=== PATIENT | male | born 1940 | race Caucasian/White ===

== ENCOUNTER → 2024-01-19 11:48 | Outpatient (REF) | payer OTHER, SELFPAY | LOC: DHCBC/DCA 11:48 | PROVIDERS: ATTENDING PHYSICIAN Internal Medicine; FAMILY PHYSICIAN Internal Medicine | DX: I48.0 Paroxysmal atrial fibrillation (principal); I47.29 Other ventricular tachycardia; E11.59 Type 2 diabetes mellitus with other circulatory complications | CPT/HCPCS: 78452; 93017; A9500; J2785 ==

== ENCOUNTER 2024-02-24 06:21 | Day surgery (SDC) | payer OTHER, SELFPAY ==
[2024-02-24 12:10] VITALS: BMI 22.2
[2024-02-24 12:15] VITALS: BP 155/82
[2024-02-24 12:28] VITALS: BMI 22.2
[2024-02-24 15:30] VITALS: BP 149/73
[2024-02-24 15:45] VITALS: BP 158/73
[2024-02-24 16:00] VITALS: BP 159/87
== END 2024-02-24 16:30 | disposition home or self-care (01) ==
LOC: GI 06:21
PROVIDERS: ATTENDING PHYSICIAN Internal Medicine Gastroenterology
DX: D12.7 Benign neoplasm of rectosigmoid junction (principal); K57.30 Diverticulosis of large intestine without perforation or abscess without bleeding; D12.8 Benign neoplasm of rectum; K64.0 First degree hemorrhoids; Z79.01 Long term (current) use of anticoagulants
CPT/HCPCS: 45349; 88305

== ENCOUNTER 2024-08-18 06:03 | Inpatient (IN) | payer OTHER, SELFPAY ==
[2024-08-01 08:39] LABS: Hematocrit 37.7 % (39.0-52.0); Mean Corp Hgb Conc. 34.5 g/dL (33.0-37.0); Mean Corpuscular Hgb 34.1 pg (27.0-31.0); Mean Platelet Volume 9.8 fL (7.4-10.4); Platelet Count 164 10^3/uL (130-400); Red Blood Cell Count 3.81 10^6/uL (4.70-6.10); Red Cell Dist. Width 12.7 % (11.5-14.5); White Blood Cell Count 6.5 10^3/uL (4.8-10.8)
[2024-08-01 08:58] LABS: APTT 28.4 Sec (23.4-35.0); INR 1.06; PT 13.6 Sec (11.4-14.6)
[2024-08-01 09:03] LABS: ALT (SGPT) 16 U/L (0-50); AST (SGOT) 23 U/L (17-59); Albumin 4.4 g/dl (3.5-5.0); Alkaline Phosphatase 77 U/L (38-126); Blood Urea Nitrogen 25 mg/dl (9-20); Calcium 9.7 mg/dl (8.4-10.2); Carbon Dioxide 29 mmol/L (22-30); Chloride 103 mmol/L (98-107); Glucose 121 mg/dl (70-99); Potassium 4.9 mmol/L (3.5-5.1); Sodium 142 mmol/L (135-145); Total Bilirubin 0.5 mg/dl (0.2-1.3); Total Protein 6.9 g/dl (6.3-8.2); eGFR 54.85
[2024-08-01 09:23] LABS: Glycohemoglobin (HgbA1c) 6.6 % (4.0-5.6)
[2024-08-01 10:09] VITALS: BMI 23.2
[2024-08-18] VITALS (14 sets, daily range): BP systolic 104–160; BP diastolic 60–80; BMI 23.2
[2024-08-18] MEDS: TYLENOL 1000 MG PO (06:29)
[2024-08-18] MEDS: HEPARIN 5000 UNITS SC (06:30)
[2024-08-18] MEDS: ENTEREG 12 MG PO (06:30)
[2024-08-18] MEDS: NORMOSOL-R/PLASMALYTE-A 1000 IV ×3 (06:34→22:55)
[2024-08-18 06:43] LABS: Glucose - Point of Care 132 mg/dl (70-99)
--- NOTE | 2024-08-18 11:48 | W.IMMPOSTOP ---
Surgical Immed Post Op Note
-
Primary Surgeon: Dayday Alves MD
Assistants: ECHO Zavala & DONNA Ramos
Pre-op Diagnosis: Recurrent sigmoid diverticulitis
Post-op Diagnosis: Same
Procedure Performed: Cystoscopy with bilateral ureteral stents/ICG by Dr. Byers
Robotic sigmoid colectomy with intracorporeal anastomosis
Anesthesia Type: GET
Specimen / Cultures: Sigmoid colon (suture is proximal)
Estimated Blood Loss: 25cc
Complications: None
Operative Findings: Chronic sigmoid diverticulitis
Cystoscopy with bladder tumor in a large diverticulum
28mm EEA
Normal leak test
Right ureteral stent removed at the completion
Patient's updated.
[2024-08-18 12:03] LABS: Glucose - Point of Care 236 mg/dl (70-99)
[2024-08-18] MEDS: NOVOLOG vial 2 UNITS SC (12:54)
[2024-08-18] MEDS: TYLENOL 650 MG PO ×4 (13:57→22:59)
[2024-08-18] MEDS: DILAUDID 0.5 MG IV ×2 (13:57→17:59)
--- NOTE | 2024-08-18 14:15 | PTCARENOTE ---
1342: Patient arrived to 2S. Full head to toe assessment completed. Lap sites closed with surgical glue clean dry and intact. IVF running per order. Patient on RA with SpO2 greater than 92%. Glez draining bloody colored urine. Call ellsworth within
reach and bed in lowest position. Family at bedside.
[2024-08-18] MEDS: NEURONTIN 300 MG PO ×2 (17:20→22:56)
[2024-08-18] MEDS: PROTONIX 40 MG PO (17:20)
[2024-08-18] MEDS: PRAVACHOL 40 MG PO (17:20)
[2024-08-18] MEDS: MIRAPEX 0.125 MG PO (17:21)
[2024-08-19 00:10] LABS: Glucose - Point of Care 157 mg/dl (70-99)
[2024-08-19 03:00] VITALS: BP 163/79
[2024-08-19] MEDS: DILAUDID 0.5 MG IV ×3 (03:28→17:17)
[2024-08-19] MEDS: TYLENOL PO (03:34)
[2024-08-19 03:57] VITALS: BP 146/68
[2024-08-19 06:00] VITALS: BMI 22.4
[2024-08-19 07:25] VITALS: BP 153/72
[2024-08-19 07:38] LABS: % Basophils 0.1 % (0-2); % Immature Granulocytes 0.6 % (0-0.5); % Lymphocytes 8.8 % (20.5-51.1); % Monocytes 6.8 % (1.7-9.3); % Neutrophils 83.7 % (42.2-75.2); Absolute Immature Granulocytes 0.1 10^3/uL (0-0.05); Absolute Lymphocytes 1.1 10^3/uL (1.2-3.4); Absolute Monocytes 0.8 10^3/uL (0.1-0.6); Absolute Neutrophils 10.2 10^3/uL (1.4-6.5); Hematocrit 31.6 % (39.0-52.0); Hemoglobin 11.1 g/dL (13.0-18.0); Mean Corp Hgb Conc. 35.1 g/dL (33.0-37.0); Mean Corpuscular Hgb 34.4 pg (27.0-31.0); Mean Corpuscular Volume 97.8 fL (80.0-94.0); Mean Platelet Volume 9.6 fL (7.4-10.4); Nucleated Red Blood Cells % 0 % (-); Platelet Count 132 10^3/uL (130-400); Red Blood Cell Count 3.23 10^6/uL (4.70-6.10); Red Cell Dist. Width 12.4 % (11.5-14.5); White Blood Cell Count 12.2 10^3/uL (4.8-10.8)
[2024-08-19 08:24] LABS: Blood Urea Nitrogen 19 mg/dl (9-20); Calcium 8.3 mg/dl (8.4-10.2); Carbon Dioxide 28 mmol/L (22-30); Chloride 103 mmol/L (98-107); Estimated Creatinine Clearance 42 ml/min; Glucose 97 mg/dl (70-99); Potassium 4.6 mmol/L (3.5-5.1); Sodium 139 mmol/L (135-145); eGFR > 60.00
[2024-08-19] MEDS: NORMOSOL-R/PLASMALYTE-A 1000 IV ×2 (09:00→17:20)
[2024-08-19] MEDS: TYLENOL 650 MG PO ×4 (09:04→22:14)
[2024-08-19] MEDS: TOPROL XL 25 MG PO (09:05)
[2024-08-19] MEDS: ENTEREG 12 MG PO ×2 (09:05→20:05)
[2024-08-19] MEDS: ZESTRIL 20 MG PO (09:06)
[2024-08-19] MEDS: NEURONTIN 300 MG PO ×3 (09:06→22:14)
[2024-08-19] MEDS: FLOMAX 0.4 MG PO (09:06)
--- NOTE | 2024-08-19 10:12 | CM ---
Reviewed the chart notes and spoke with the patient at the bedside. The patient resides with his spouse in an in-law suite attached to his son's home. There is a ramp to enter. The patient has a hospital bed, rolling walker, rollator, shower
chair, shower rails, and a wheelchair. The patient reports no VN or SNF in the past. The patient confirmed his pharmacy of choice is the [facility]. CM continues to be available to patient/family and is monitoring medical plan for needs
at discharge.
Plan: Discharge plans will depend on the patient's progress.
[2024-08-19 11:15] VITALS: BP 137/67
--- NOTE | 2024-08-19 11:53 | W.PN.CRS1 ---
Today's Communication / Plan
-
dc conrad
clears
hold eliquis
stent removed
Assessment/Plan
-
POD#1 robotic sigmoidectomy
-WBC 12.2 as expected post op. Vitals normal.
-OOB as tolerated
-Stent #2 removed at bedside
-Okay to d/c conrad
-Clear liquids. DC IVFs when tolerating po.
-OR pathology pending
-Needs urology follow up as outpatient for recurrent bladder tumor
-Lovenox start tonight for DVT prophylaxis, TEDS/SCDS in place
-Continue to hold Eliquis
Subjective Data
Procedure
08/18- Cystoscopy with bilateral ureteral stents/ICG by Dr. Byers
Robotic sigmoid colectomy with intracorporeal anastomosis
Subjective Data
Date of Service: August 19, 2024
Patient states he has no pain. He has no nausea or vomiting. He is very thirsty. He has loose stool. He does not have flatus yet.
Objective Data
-
Vital Signs
Temp Pulse Resp BP Pulse Ox
98.2 F 76 16 137/67 97
08/19/24 11:15 08/19/24 11:15 08/19/24 11:15 08/19/24 11:15 08/19/24 11:15
Intake & Output
08/18/24 08/19/24 08/20/24
06:59 06:59 06:59
Intake Total 1800 / 1800 300 / 300
Output Total 750 / 750 350 / 350
Balance 1050 / 1050 -50 / -50
Intake:
IV fluids (Total) 1800 / 1800 300 / 300
Output:
Urine, Conrad 750 / 750 350 / 350
Lab Results
08/19/24 06:42
08/19/24 06:42
Physical Exam
-
General: No Acute Distress and AOx3
Abdomen: Soft, Non Distended and Non Tender
Skin: Warm and Dry
Incision: Clear, Dry, Intact
[2024-08-19 15:20] VITALS: BP 139/72
[2024-08-19] MEDS: LOVENOX 40 MG SC (17:18)
[2024-08-19] MEDS: MIRAPEX 0.125 MG PO (17:19)
[2024-08-19] MEDS: PROTONIX 40 MG PO (17:19)
[2024-08-19] MEDS: DILAUDID 0.25 MG IV (22:14)
[2024-08-19 23:00] VITALS: BP 150/74
[2024-08-20] MEDS: TYLENOL PO (00:56)
[2024-08-20] MEDS: DILAUDID 0.5 MG IV (03:35)
[2024-08-20] MEDS: TYLENOL 650 MG PO ×5 (03:35→21:56)
[2024-08-20] MEDS: ZOFRAN 4 MG IV (03:40)
[2024-08-20 06:00] VITALS: BMI 22.8
--- NOTE | 2024-08-20 06:39 | PTCARENOTE ---
Pt required 2l N/C O2 @ HS last night for O2 sats 88 on RA able to maintain 93 on 2L during shift.
[2024-08-20 07:15] VITALS: BP 144/84
[2024-08-20 07:41] LABS: % Basophils 0.1 % (0-2); % Eosinophils 0.1 % (0-6); % Immature Granulocytes 0.5 % (0-0.5); % Lymphocytes 7.7 % (20.5-51.1); % Neutrophils 87.6 % (42.2-75.2); Absolute Immature Granulocytes 0.1 10^3/uL (0-0.05); Absolute Lymphocytes 0.8 10^3/uL (1.2-3.4); Absolute Monocytes 0.4 10^3/uL (0.1-0.6); Absolute Neutrophils 8.7 10^3/uL (1.4-6.5); Hematocrit 33.3 % (39.0-52.0); Hemoglobin 11.8 g/dL (13.0-18.0); Mean Corp Hgb Conc. 35.4 g/dL (33.0-37.0); Mean Corpuscular Hgb 35.2 pg (27.0-31.0); Mean Corpuscular Volume 99.4 fL (80.0-94.0); Mean Platelet Volume 9.9 fL (7.4-10.4); Nucleated Red Blood Cells % 0 % (-); Platelet Count 113 10^3/uL (130-400); Red Blood Cell Count 3.35 10^6/uL (4.70-6.10); Red Cell Dist. Width 12.3 % (11.5-14.5)
[2024-08-20 08:12] LABS: Blood Urea Nitrogen 18 mg/dl (9-20); Calcium 8.5 mg/dl (8.4-10.2); Carbon Dioxide 31 mmol/L (22-30); Chloride 102 mmol/L (98-107); Estimated Creatinine Clearance 38 ml/min; Glucose 127 mg/dl (70-99); Potassium 4.7 mmol/L (3.5-5.1); Sodium 139 mmol/L (135-145); eGFR > 60.00
[2024-08-20] MEDS: NEURONTIN 300 MG PO ×3 (08:38→21:57)
[2024-08-20] MEDS: FLOMAX 0.4 MG PO (08:38)
[2024-08-20] MEDS: ENTEREG 12 MG PO ×2 (08:39→21:56)
[2024-08-20] MEDS: TOPROL XL 25 MG PO (08:39)
[2024-08-20] MEDS: ZESTRIL 20 MG PO (08:39)
[2024-08-20] MEDS: DILAUDID 0.25 MG IV (08:50)
--- NOTE | 2024-08-20 11:46 | W.PN.CRS1 ---
Today's Communication / Plan
-
restart eliquis
fulls
Assessment/Plan
-
POD#2 robotic sigmoidectomy
-WBC 10.0 as expected post op. Vitals normal.
-OOB as tolerated
-Full liquids.
-OR pathology pending
-Needs urology follow up as outpatient for recurrent bladder tumor
-TEDS/SCDS in place
-Restart Eliquis
Subjective Data
Procedure
08/18- Cystoscopy with bilateral ureteral stents/ICG by Dr. Byers
Robotic sigmoid colectomy with intracorporeal anastomosis
Subjective Data
Date of Service: August 20, 2024
Patient states he is hungry. He had some nausea last night which has resolved. He has flatus. His urine is bloody.
Objective Data
-
Vital Signs
Temp Pulse Resp BP Pulse Ox
98.6 F 84 16 144/84 96
08/20/24 07:15 08/20/24 07:15 08/20/24 07:15 08/20/24 07:15 08/20/24 09:01
Intake & Output
08/19/24 08/20/24 08/21/24
06:59 06:59 06:59
Intake Total 1800 / 1800 3340 / 3340 240 / 240
Output Total 750 / 750 1450 / 1450 375 / 375
Balance 1050 / 1050 1890 / 1890 -135 / -135
Intake:
Oral fluids 1140 / 1140 240 / 240
IV fluids (Total) 1800 / 1800 2200 / 2200
Output:
Urine, Glez 750 / 750 650 / 650
Urine, Voided 800 / 800 375 / 375
Other:
Number of approximated MODERATE 2
amounts of urine
Lab Results
08/20/24 05:49
08/20/24 05:49
Physical Exam
-
General: No Acute Distress and AOx3
Abdomen: Soft, Non Distended and Non Tender
Skin: Warm and Dry
Incision: Clear, Dry, Intact
[2024-08-20 15:20] VITALS: BP 115/75
[2024-08-20] MEDS: MIRAPEX 0.125 MG PO (16:10)
[2024-08-20] MEDS: PROTONIX 40 MG PO (16:11)
[2024-08-20] MEDS: PRAVACHOL 40 MG PO (16:11)
--- NOTE | 2024-08-20 19:45 | PTCARENOTE ---
urine is bloody/brown did discuss with PA since stents were pulled yesterday they are okay with this.
[2024-08-20] MEDS: ELIQUIS 2.5 MG PO (21:57)
[2024-08-20 23:17] VITALS: BP 105/58
[2024-08-21] MEDS: TYLENOL PO ×2 (00:31→03:27)
[2024-08-21 05:31] VITALS: BMI 22.5
[2024-08-21 08:00] VITALS: BP 142/74
[2024-08-21] MEDS: NEURONTIN 300 MG PO (08:26)
[2024-08-21] MEDS: ZESTRIL 20 MG PO (08:26)
[2024-08-21] MEDS: ENTEREG 12 MG PO (08:26)
[2024-08-21] MEDS: TYLENOL 650 MG PO ×2 (08:26→11:21)
[2024-08-21] MEDS: ELIQUIS 2.5 MG PO (08:26)
[2024-08-21] MEDS: FLOMAX 0.4 MG PO (08:26)
[2024-08-21] MEDS: TOPROL XL 25 MG PO (08:27)
--- NOTE | 2024-08-21 09:22 | W.PN.CRS1 ---
Today's Communication / Plan
-
low residue
urology input
Assessment/Plan
-
POD#3 robotic sigmoidectomy
-Vitals normal.
-OOB as tolerated
-Advance to low residue.
-OR pathology pending
-Needs urology follow up as outpatient for recurrent bladder tumor - I have reached out to them regarding continuing blood in the urine
-TEDS/SCDS in place
-On Eliquis 2.5mg BID
-Possible d/c later today
Subjective Data
Procedure
08/18- Cystoscopy with bilateral ureteral stents/ICG by Dr. Byers
Robotic sigmoid colectomy with intracorporeal anastomosis
Subjective Data
Date of Service: August 21, 2024
Patient states he had some loose stools. He has flatus. He doesn't have abdominal pain, but rather, 'feels tight'. He continues to have blood in his urine.
Objective Data
-
Vital Signs
Temp Pulse Resp BP Pulse Ox
98.4 F 79 16 142/74 94
08/21/24 08:00 08/21/24 08:00 08/21/24 08:00 08/21/24 08:00 08/21/24 08:00
Intake & Output
08/20/24 08/21/24 08/22/24
06:59 06:59 06:59
Intake Total 3340 / 3340 1919
Output Total 1450 / 1450 375 / 375
Balance 1890 / 1890 1545 / 1545
Intake:
Oral fluids 1140 / 1140 1919 / 1919
IV fluids (Total) 2199 / 2199
Output:
Urine, Glez 650 / 650
Urine, Voided 800 / 800 375 / 375
Other:
Number of approximated MODERATE 2 3
amounts of urine
Number of approximated LARGE 4
amounts of urine
Lab Results
08/20/24 05:49
08/20/24 05:49
Physical Exam
-
General: No Acute Distress and AOx3
Abdomen: Soft, Non Distended and Non Tender
Skin: Warm and Dry
Incision: Clear, Dry, Intact
[2024-08-21 13:35] VITALS: BP 129/71
--- NOTE | 2024-08-21 13:52 | W.DCSUMMARY ---
Discharge Summary
Discharge Data
Date of Admission: 08/18/24
Date of Discharge: 08/21/24
-
Pending Results: Yes
Additional Pending Results:
OR pathology
Hospital Course
84-year-old male presented for a robotic sigmoid colectomy due to recurrent sigmoid diverticulitis. This was performed on 08/18/[address] Dayday Alves. The patient had ureteral catheters placed prior to the start of surgery for visualization
of the ureters. 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 Postoperatively the patient went back [place] [facility] [place]. His Glez was discontinued and the stent that was left
in place in the operating room was removed he was started on clear liquid diet he was up and out of bed. His diet was slowly advanced to a low residue diet throughout his stay. His home Eliquis was restarted on postop day 2. The patient did have
some bloody urine post Glez removal. This was reviewed by Dr. Byers who recommended he follow-up with Dr. Richardson as an outpatient for a possible TURP. On postop day 3 it was determined the patient to be discharged to home. I discussed the
case with case management who stated the patient did not want home health services. All discharge instructions were discussed with the patient including medication tibials and follow-up. All questions were answered. OR pathology was pending at
the time of discharge.
Discharge Plan
-
Patient Disposition: Home (Routine Discharge)
Discharge Diagnosis/Procedures: Cystoscopy with bilateral ureteral stents/ICG by Dr. Byers
Robotic sigmoid colectomy with intracorporeal anastomosis
Diet: Low Residue
Activity: No strenuous activity
Additional Activity: No lifting over 10lbs (gallon of milk).
Driving Restrictions: No driving for 1 week
Bathing Restrictions: OK to Shower
Wound Care: Allow glue to naturally fall off. Do not pick at incisions.
Activity Restrictions/Additional Instructions:
Please follow up with Dr. Richardson in the office this week to plan for a TURBT.
Instructions: Low Fiber Diet
Referrals:
Stefan Alves MD [Active] - in two weeks
Rajan Jhaveri MD [Family Provider] -
Wilmer Richardson MD [Active] - in three to four days
Additional Discharge Medication Instructions: Tylenol as needed for pain. Maximum amount of Tylenol is 4,000mg in 24 hours.
Prescriptions:
Continued
multivitamin Tablet
1 tab PO QPM
pravastatin 40 mg Tablet
40 mg PO Q48H@1800
pramipexole 0.125 mg Tablet
0.125 mg PO QPM
omeprazole 20 mg Capsule,Delayed Release(Dr/Ec)
20 mg PO QPM
ascorbic acid (vitamin C) 1,000 mg Tablet
1 g PO QPM
tamsulosin 0.4 mg Capsule
0.4 mg PO DAILY Qty: 30 0RF
lisinopril 20 mg tablet
20 mg PO DAILY Qty: 30 0RF
metoprolol succinate 25 mg Tablet Extended Release 24 Hr
25 mg PO DAILY
gabapentin 300 mg Tablet
600 mg PO HS
Eliquis 2.5 mg Tablet
2.5 mg PO BID
gabapentin 300 mg capsule
300 mg PO QID
Tylenol
650 mg PO Q8H PRN (Reason: pain)
Discontinued
Sutab 1.479-0.188- 0.225 gram Tablet
PO DIRECTED
Discharge Orders:
Discharge Patient (As Directed); Ordered 08/21/24
Ordered By: Jaylyn Bowles
Discharge Date and Time
Print Language: MACANESE
--- NOTE | 2024-08-21 14:20 | CM ---
Pt for discharge today
Will have ride home with family member
Discussed HH - pt declined
Discussed IMM
Plan - anticipate home no needs
--- NOTE | 2024-08-22 10:59 | PN.CDI ---
CDI
- -
CDI:
Physician Documentation Request
Admit Date: 08/18/24 06:03
Dear Doctor Zeeshan,
Patient had placement of bilateral ureteral stents on 08/18.
Progress notes indicate pt has known evidence of recurrent bladder tumor.
08/20 Eliquis was restarted
08/20 nursing notes indicated 'urine is bloody/brown' as well as surgery progress notes noting 'His urine is bloody'
Discharge summary 'The patient did have some bloody urine post Conrad removal.'
Based on the above, what is the most likely etiology of the bloody urine:
Bloody urine is related to ureteral stents
Bloody urine is related to/due to bladder tumor
Bloody urine is related to/due to conrad cath
Bloody urine is related to/due to/exacerbated by Eliquis
Bloody urine is related to/due to multifactorial (please list contributing factors)
Other
Use of terms such as suspected, likely, concern for, or probable (associated with a specific diagnosis that is being evaluated, monitored, or treated as if it exists) are acceptable and can be coded in the inpatient setting, when documented at the
time of discharge.
Thank you,
India Jackson RN, BSN
CDI Specialist
tiger text
Please use your independent medical judgment in providing your response.
--- NOTE | 2024-08-23 14:41 | W.PN.URO.CBU ---
Today's Communication / Plan
-
no new input
Assessment / Plan
-
Bloody urine is multifactorial: related to ureteral stents; related to bladder tumor; related to conrad catheter; exacerbated by Eliquis
Diagnosis
-
Date of Service: August 23, 2024
-
Patient Diagnosis: Bladder Cancer, Hematuria, s/p bilateral open-ended ureteral catheter and Conrad placement for OR
Objective
-
Vital Signs
Temp Pulse Resp BP Pulse Ox
99.4 F 100 16 129/71 94
08/21/24 13:35 08/21/24 13:35 08/21/24 13:35 08/21/24 13:35 08/21/24 13:35
Laboratory Results
08/20/24 05:49
08/20/24 05:49
Physical Exam
-
General - well developed, well nourished, no acute distress
Chest - clear bilaterally
Abdomen - soft, non-tender, positive bowel sounds, no CVAT, no incisional pain or distention
Genitalia - normal
Rectal - normal
Skin - warm & dry with no rash
Neuro - AOx3, no motor deficits
Extremities - no clubbing, no cyanosis, no edema
Incision - clean, dry
Dressing - clean, dry, intact
== END 2024-08-21 14:54 | disposition home or self-care (01) | DRG 330 ==
LOC: 2 SOUTH 06:03
PROVIDERS: Physician Assistant; Specialist; ADMITTING PHYSICIAN Surgery; FAMILY PHYSICIAN Internal Medicine
PROC: 0TP9XDZ Removal of Intraluminal Device from Ureter, External Approach (ICD-10-PCS; 2024-08-18)
PROC: 8E0W4CZ Robotic Assisted Procedure of Trunk Region, Percutaneous Endoscopic Approach (ICD-10-PCS; 2024-08-18)
PROC: 0T788DZ Dilation of Bilateral Ureters with Intraluminal Device, Via Natural or Artificial Opening Endoscopic (ICD-10-PCS; 2024-08-18)
PROC: 0DTN4ZZ Resection of Sigmoid Colon, Percutaneous Endoscopic Approach (ICD-10-PCS; 2024-08-18)
DX: K57.32 Diverticulitis of large intestine without perforation or abscess without bleeding (principal); D68.32 Hemorrhagic disorder due to extrinsic circulating anticoagulants; N99.820 Postprocedural hemorrhage of a genitourinary system organ or structure following a genitourinary system procedure; T83.83XA Hemorrhage due to genitourinary prosthetic devices, implants and grafts, initial encounter; C67.4 Malignant neoplasm of posterior wall of bladder; N32.3 Diverticulum of bladder; K40.90 Unilateral inguinal hernia, without obstruction or gangrene, not specified as recurrent; I48.0 Paroxysmal atrial fibrillation; E78.5 Hyperlipidemia, unspecified; F17.290 Nicotine dependence, other tobacco product, uncomplicated; T45.515A Adverse effect of anticoagulants, initial encounter; R31.9 Hematuria, unspecified; Y73.2 Prosthetic and other implants, materials and accessory gastroenterology and urology devices associated with adverse incidents; Z79.01 Long term (current) use of anticoagulants; Z79.899 Other long term (current) drug therapy; Z87.19 Personal history of other diseases of the digestive system; Z86.010 Personal history of colon polyps; Z82.49 Family history of ischemic heart disease and other diseases of the circulatory system
CPT/HCPCS: 88307; 36415; 80048; 80053; 82962; 83036; 85025; 85027; 85610; 85730; 86850; 86900; 86901; 93005; 97162; 99406; A4300; J1335

== ENCOUNTER 2024-09-12 00:43 | Observation (INO) | payer OTHER, SELFPAY ==
[2024-09-11 16:29] VITALS: BP 154/73
--- NOTE | 2024-09-11 16:29 | ED.GENMED ---
ED Provider Triage
<Sydnee Rubio NP - Last Filed: 09/11/24 16:36>
-
Patient seen by provider in Triage?: Seen in Triage
Attestation: A medical screening examination has been initiated by a qualified medical provider. Based on the assessment performed at this time, it has been determined that an emergent medical condition may exist and the patient has been informed
that further medical evaluation and possible additional diagnostic testing may be needed.
HPI: 84-year-old with history of afib on Eliquis, bladder cancer, Dr. Richardson, receiving BCG treatments, was supposed to have a treatment today but couldn't make it. States he is here for abdominal pain that has been worsening since his previous
surgery.
Had colon resection for diverticulitis approximately 3 weeks ago
Has had mild nausea, no vomiting. He constantly feels like he has to have a bowel movement but can only go small amounts, nonbloody, off and on for the past couple days. His appetite has been poor. Denies trouble urinating
GENERAL: Alert , in no apparent distress
EYE: No visual abnormalities.
ENT: No visible abnormalities.
CARDIAC: RRR, no murmur
LUNGS: No acute respiratory distress
NEUROLOGICAL: Alert and oriented
SKIN: Skin intact. No visible changes.
MUSCULOSKELETAL: Moving extremities normally
PSYCH: Normal and appropriate interaction.
This is a medical evaluation conducted in person to initiate diagnostic evaluation and provide initial therapeutics. Please see further documentation by the treating clinician.
History of Present Illness
<Sydnee Rubio GARAGE DOOR SERVICE TECHNICIAN - Last Filed: 09/11/24 16:36>
General
Chief Complaint: Abdominal Pain
Time Seen by Provider: 09/11/24 20:42
<Etienne Bazan Jr., PA-C - Last Filed: 09/11/24 23:48>
General
Source: patient, spouse and family
Exam Limitations: none
History of Present Illness
History of Present Illness:
84-year-old male with past medical history of A-fib currently on Eliquis, hypertension hyperlipidemia, diabetes presenting to the emergency department today for concerns of ongoing left lower quadrant abdominal pain over the past 3 weeks. Claims to
be diverticulitis and had sigmoidectomy 3 weeks ago has had ongoing pain and decreased appetite since. Denies any chest pain shortness of breath changes in urination.
Past History
<Sydnee Rubio GARAGE DOOR SERVICE TECHNICIAN - Last Filed: 09/11/24 16:36>
Past History
ED Past Medical History: Arrthythmia (atrial fib), Cancer (Bladder ), GERD, HTN, Hypercholesterolemia, NIDDM and Other (Emphysema, Diverticulitis, UTI, Sepsis)
ED Past Surgical History: Tonsilectomy and Urological (TURP)
Patient has exhibited threatening behavior?: No
PSI?: No
Social History
Tobacco: Smoker (Cigars)
Alcohol: None
Personal:
Living: with family
Review of Systems
<Etienne Bazan Jr., PA-C - Last Filed: 09/11/24 23:48>
Review of Systems
Allergies reviewed?: Yes
All Other Systems: ROS reviewed and negative except as documented in HPI and ROS
Phy Exam
<Etienne Bazan Jr., PA-C - Last Filed: 09/11/24 23:48>
Physical Exam
Physical Exam:
GENERAL: Alert , in no apparent distress
EYE: pupils equal and reactive
NECK: Supple, no significant adenopathy.
ENT: o/p clr, mmm.
CARDIAC: Regular rate and rhythm .
LUNGS: Clear breath sounds bilaterally, no acute respiratory distress, no wheezes/rales/rhonchi
ABDOMEN: Left lower quadrant abdominal pain without overlying skin changes soft abdomen otherwise to the remainder of the abdomen
NEUROLOGICAL: Alert and oriented, no focal neuro deficits
SKIN: Warm and dry, skin intact.
MUSCULOSKELETAL: No edema, well perfused.
PSYCH: Normal and appropriate interaction.
Course
<Sydnee Rubio, GARAGE DOOR SERVICE TECHNICIAN - Last Filed: 09/11/24 16:36>
Orders/Labs/Results
Orders:
Orders
09/11/24 16:34
CT Abd/pel W Iv And Oral Contr Urgent
Comment:
Reason For Exam: abd pain, recent colon resect for diverticulitis
Iohexol [Omnipaque] See Protocol PO NOW STA
09/11/24 16:35
Complete Blood Count/With Diff Urgent
Comprehensive Metabolic Panel Urgent
Lipase Urgent
09/11/24 22:42
Urinalysis Reflex To Culture Urgent
Date Specimen was Collected: 09/11/24
Time Specimen was Collected: 16:33
Abnormal Lab Results
09/11/24 09/11/24
16:35 22:42
RBC 3.58 L 10^6/uL
(4.70-6.10)
Hgb 12.4 L g/dL
(13.0-18.0)
Hct 34.7 L %
(39.0-52.0)
MCV 96.9 H fL
(80.0-94.0)
MCH 34.6 H pg
(27.0-31.0)
Eosinophils % 6.9 H %
(0-6)
Glucose 103 H mg/dl
(70-99)
Urine Ketones Trace A
(Negative)
09/11/24 16:35
09/11/24 16:35
Vital Signs
Initial and Last Documented VS:
Initial Vital Signs
Temp Pulse Resp BP Pulse Ox
98.1 F 74 16 154/73 97
09/11/24 16:29 09/11/24 16:29 09/11/24 16:29 09/11/24 16:29 09/11/24 16:29
Last Documented Vital Signs
Temp Pulse Resp BP Pulse Ox
98.1 F 67 16 125/77 98
09/11/24 16:29 09/11/24 20:50 09/11/24 20:50 09/11/24 22:41 09/11/24 20:50
<Etienne Bazan Jr., PA-Estrada - Last Filed: 09/11/24 23:48>
Orders/Labs/Results
Orders:
Orders
09/11/24 16:34
CT Abd/pel W Iv And Oral Contr Urgent
Comment:
Reason For Exam: abd pain, recent colon resect for diverticulitis
Iohexol [Omnipaque] See Protocol PO NOW STA
09/11/24 16:35
Complete Blood Count/With Diff Urgent
Comprehensive Metabolic Panel Urgent
Lipase Urgent
09/11/24 22:42
Urinalysis Reflex To Culture Urgent
Date Specimen was Collected: 09/11/24
Time Specimen was Collected: 16:33
Abnormal Lab Results
09/11/24 09/11/24
16:35 22:42
RBC 3.58 L 10^6/uL
(4.70-6.10)
Hgb 12.4 L g/dL
(13.0-18.0)
Hct 34.7 L %
(39.0-52.0)
MCV 96.9 H fL
(80.0-94.0)
MCH 34.6 H pg
(27.0-31.0)
Eosinophils % 6.9 H %
(0-6)
Glucose 103 H mg/dl
(70-99)
Urine Ketones Trace A
(Negative)
09/11/24 16:35
09/11/24 16:35
Vital Signs
Initial and Last Documented VS:
Initial Vital Signs
Temp Pulse Resp BP Pulse Ox
98.1 F 74 16 154/73 97
09/11/24 16:29 09/11/24 16:29 09/11/24 16:29 09/11/24 16:29 09/11/24 16:29
Last Documented Vital Signs
Temp Pulse Resp BP Pulse Ox
98.1 F 67 16 125/77 98
09/11/24 16:29 09/11/24 20:50 09/11/24 20:50 09/11/24 22:41 09/11/24 20:50
<Etienne Bazan Jr., PA-C - Last Filed: 09/11/24 23:48>
MDM/Problems Addressed
MDM/Problems Addressed:
84-year-old male presenting to the emergency department today with concerns of ongoing left lower quadrant abdominal pain. Recent sigmoidectomy [address] Alves. Here vital signs are normal. Patient in no distress labs obtained without
acute abnormalities normal white count normal urinalysis. CT scan showed a 2.8 x 0.8 cm fluid collection in the left lower quadrant of unclear etiology. Case was discussed with colorectal the recommended admitting to be assessed in the morning for
further recommendation. Stable here.
<Etienne Bazan Jr., PA-C - Last Filed: 09/11/24 23:48>
*Critical Care Note
Total Time (30-74mins, 75-104mins- exclusive of procedures): Not Applicable
ED Attending Note
<Sydnee Rubio GARAGE DOOR SERVICE TECHNICIAN - Last Filed: 09/11/24 16:36>
-
Portions of this chart may have been created with voice recognition software.� Occasional wrong word or��sound alike� substitutions may have occurred due to the inherent limitations of voice recognition software.
Discharge Plan
Departure
Patient Disposition: Admit
Date of Disposition: 09/11/24
Time of Disposition: 23:47
Admit to: Med/Surg
Admit to doctor: Vick
Presentation/result/management discussed w/ accepting MD/DO: Hospitalist
Patient with high blood pressure during this ER visit?: No
Condition: Good
Covid-19: Not Applicable
Discharge Problem:
Abdominal pain, left lower quadrant, Abdominal fluid collection
Prescriptions:
No Action
multivitamin Tablet
1 tab PO QPM
pravastatin 40 mg Tablet
40 mg PO Q48H@1800
pramipexole 0.125 mg Tablet
0.125 mg PO QPM
omeprazole 20 mg Capsule,Delayed Release(Dr/Ec)
20 mg PO QPM
ascorbic acid (vitamin C) 1,000 mg Tablet
1 g PO QPM
tamsulosin 0.4 mg Capsule
0.4 mg PO DAILY Qty: 30 0RF
lisinopril 20 mg tablet
20 mg PO DAILY Qty: 30 0RF
metoprolol succinate 25 mg Tablet Extended Release 24 Hr
25 mg PO DAILY
gabapentin 300 mg Tablet
600 mg PO HS
Eliquis 2.5 mg Tablet
2.5 mg PO BID
gabapentin 300 mg capsule
300 mg PO TID
Tylenol
650 mg PO Q8H PRN (Reason: pain)
Referrals:
Rajan Jhaveri MD [Family Provider] -
Interventions
Interventions:
*Risk Screen - Suicide Last Done: 09/11/24 16:29
*General Assessment Last Done: 09/11/24 20:50
*Neglect/Abuse Screening Last Done: 09/11/24 16:29
ED- Fall Risk Assessment Last Done: 09/11/24 20:50
*ED COVID-19 Vaccine History Last Done: 09/11/24 20:50
JX-Kezhbs-Igsjsevsrg Assessment Last Done: 09/11/24 20:50
Discharge Date and Time
Print Language: KOREAN
[2024-09-11] MEDS: OMNIPAQUE 50 ML PO (16:47)
[2024-09-11 16:53] LABS: % Basophils 0.5 % (0-2); % Eosinophils 6.9 % (0-6); % Immature Granulocytes 0.2 % (0-0.5); % Lymphocytes 27.3 % (20.5-51.1); % Monocytes 8.9 % (1.7-9.3); % Neutrophils 56.2 % (42.2-75.2); Absolute Eosinophils 0.4 10^3/uL (0-0.7); Absolute Lymphocytes 1.6 10^3/uL (1.2-3.4); Absolute Monocytes 0.5 10^3/uL (0.1-0.6); Absolute Neutrophils 3.3 10^3/uL (1.4-6.5); Hematocrit 34.7 % (39.0-52.0); Hemoglobin 12.4 g/dL (13.0-18.0); Mean Corp Hgb Conc. 35.7 g/dL (33.0-37.0); Mean Corpuscular Hgb 34.6 pg (27.0-31.0); Mean Corpuscular Volume 96.9 fL (80.0-94.0); Mean Platelet Volume 9.3 fL (7.4-10.4); Nucleated Red Blood Cells % 0 % (-); Platelet Count 168 10^3/uL (130-400); Red Blood Cell Count 3.58 10^6/uL (4.70-6.10); Red Cell Dist. Width 12.5 % (11.5-14.5); White Blood Cell Count 5.9 10^3/uL (4.8-10.8)
[2024-09-11 17:26] LABS: ALT (SGPT) 14 U/L (0-50); AST (SGOT) 23 U/L (17-59); Albumin 4.3 g/dl (3.5-5.0); Alkaline Phosphatase 70 U/L (38-126); Blood Urea Nitrogen 14 mg/dl (9-20); Calcium 9.6 mg/dl (8.4-10.2); Carbon Dioxide 26 mmol/L (22-30); Chloride 103 mmol/L (98-107); Glucose 103 mg/dl (70-99); Sodium 140 mmol/L (135-145); Total Bilirubin 0.6 mg/dl (0.2-1.3); Total Protein 6.9 g/dl (6.3-8.2); eGFR > 60.00
[2024-09-11 18:17] VITALS: BP 120/86
[2024-09-11 18:26] LABS: Lipase 43 U/L (23-300)
[2024-09-11 20:50] VITALS: BP 163/80; BMI 22.1
[2024-09-11 22:41] VITALS: BP 125/77
--- NOTE | 2024-09-11 22:58 | EDRN ---
Updated patient and family to let know the patient will be admitted over night and then the specialist will see him in the morning, call ellsworth in reach, no further complaints at this time.
[2024-09-11 23:00] VITALS: BP 141/94
[2024-09-11 23:04] LABS: Urine Albumin Trace (Neg - Trace); Urine Bilirubin Negative (Negative); Urine Character Clear (Clear); Urine Color Yellow; Urine Glucose Negative (Negative); Urine Ketone Trace (Negative); Urine Leukocyte Negative (Negative); Urine Nitrite Negative (Negative); Urine Occult Blood Negative (Negative); Urine Specific Gravity 1.005 (<1.030); Urine Urobilinogen Negative (Neg - 1+)
[2024-09-12] VITALS (20 sets, daily range): BP systolic 114–170; BP diastolic 55–91; BMI 21.2
--- NOTE | 2024-09-12 00:14 | EDRN ---
Dr. Hickman at bedside working on admission
[2024-09-12] MEDS: NEURONTIN 600 MG PO ×2 (00:28→20:28)
--- NOTE | 2024-09-12 00:35 | HPS.HSE ---
Family Physician
-
Family Physician: Rajan Jhaveri
Chief Complaint
-
Abd Pain
History of Present Illness
Patient is an 84y M with PMH significant for bladder cancer, hypertension and recent sigmoidectomy for recurrent diverticulitis who presents to ED complaining of abdominal pain. Patient reports L sided abdominal pain that radiates from the LUQ
region to the L groin. Pain started Wednesday evening after dinner (pot roast and potatoes). Patient had been doing well prior to that on diet of oatmeal, sherbet and other soft / liquid foods. He denies any fevers / chills. No diarrhea, urinary
complaints, etc. No N/V.
Patient states that his current discomfort is identical to the pain that he has been having intermittently for the past year.
pain tends to occur after eating - especially with certain foods.
He also notes that pain is worse with standing / being active and is better with rest / lying flat.
Medical History
Past Medical History
Past Medical History: Reports Other
Additional Past Medical History:
Hypertension
Paroxysmal Atrial Fibrillation
DM-II
Bladder Cancer
Diverticular Disease
Past Surgical History: Reports Other
Additional Past Surgical History:
T&A
TURBT
Robotic Sigmoidectomy (08/18/24)
Social History
Tobacco: Former Smoker (Quit smoking cigarettes 20 years ago. > 40 pack years total use. Still smokes the occasional cigar.)
Alcohol: Former (No alcohol in decades.)
Drug: None
Family History
Family History: CAD, Diabetes and Hypertension
Allergies / Home Medications
Allergies reflects when Allergies were last updated in [facility].
Home Medications with original date entered in [facility]
Allergy/Medication List:
Allergies
Allergy/AdvReac Type Severity Reaction Status Date / Time
No Known Allergies Allergy Verified 09/11/24 16:32
Home Medications
multivitamin 1 tab PO QPM Supplement 01/04/23
omeprazole 20 mg capsule,delayed release 20 mg PO QPM Gastrointestinal Issue 01/04/23
pramipexole 0.125 mg tablet 0.125 mg PO QPM Neurological Condition 01/04/23
pravastatin 40 mg tablet 40 mg PO Q48H@1800 High Cholesterol 01/04/23
ascorbic acid (vitamin C) 1,000 mg tablet 1 g PO QPM Supplement 04/30/23
lisinopril 20 mg tablet 20 mg PO DAILY #30 tabs 05/04/23
tamsulosin 0.4 mg capsule 0.4 mg PO DAILY #30 caps 05/04/23
apixaban 2.5 mg tablet (Eliquis) 2.5 mg PO BID ATRIAL FIBRILLATION 10/15/23
gabapentin 300 mg capsule 300 mg PO TID NEUROPATHY 10/15/23
gabapentin 300 mg tablet 600 mg PO HS NEUROPATHY 10/15/23
metoprolol succinate 25 mg tablet,extended release 24 hr 25 mg PO DAILY Blood Pressure 10/15/23
Tylenol 650 mg PO Q8H PRN pain 02/24/24
Review of Systems
-
History Source: Patient
A 12 point ROS was completed and negative except as noted: Yes
Constitutional: Denies Fever or Chills
EENT: Denies Sore Throat
Respiratory: Denies Cough or Trouble Breathing
Cardiac: Denies Chest Pain or Palpitations
Abdomen/GI: Reports Abdominal Pain; Denies Nausea, Vomiting, Diarrhea, Constipated, Bloody Stools or Black Stools
: Denies Dysuria, Frequency, Flank Pain or Bleeding
Neurological: Denies Dizzy or Headache
Physical Exam
Vital Signs
Vital Signs
Temp Pulse Resp BP Pulse Ox
98.1 F 67 16 164/69 98
09/11/24 16:29 09/11/24 20:50 09/11/24 20:50 09/12/24 00:00 09/11/24 20:50
Physical Exam
General: Other (84y M in no acute distress.)
HEENT: Moist mucous membranes and PERRLA
Respiratory: Other (Few scattered squeaks and wheezes.)
Cardiac: S1/S2 and Irregular Rhythm; No Murmur
GI: Soft, Non Distended, Normal Bowel Sounds and Other (Suprapubic incision well-appearing. Visible / mildly tender L inguinal hernia. Tenderness LUQ with radiation to the L groin. Abdomen is soft. No rebound / guarding.)
Musculoskeletal: No Clubbing, No Cyanosis and No Edema
Neuro: AO x 3
Laboratory Results
-
09/11/24 16:35
09/11/24 16:35
Laboratory Results
Total Bilirubin 0.6 mg/dl (0.2-1.3) 09/11/24 16:35
AST 23 U/L (17-59) 09/11/24 16:35
ALT 14 U/L (0-50) 09/11/24 16:35
Alkaline Phosphatase 70 U/L (38-126) 09/11/24 16:35
Lipase 43 U/L (23-300) 09/11/24 16:35
Lipase Cancelled 09/11/24 16:35
Impression/Plan
-
A/P: Patient is an 84y M with PMH significant for bladder cancer, hypertension and recent sigmoid resection who presents to ED complaining of abdominal pain.
Abdominal Pain
s/p Robotic Sigmoid Resection 08/18/24
- Observe overnight for further evaluation and treatment.
- Patient states that pain is identical to his prior episodes - which had been attributed to diverticulitis.
- CT done today shows normal post-op changes - including fluid accumulation in the LLQ - most likley representing seroma.
- Afebrile, not toxic appearing, etc.
- ? etiology of his pain.
- ? related to bladder / transitional cell cancer?
- ? other etiology.
- Lipase is normal.
- Pain is not in defined dermatome to suggest radicular symptoms, etc.
- Supportive care for now.
- CRS evaluation in the AM.
- Follow for any new / worsening symptoms.
Benign Hypertension
- Stable. Continue usual med regimen with holding parameters.
Diet-Controlled DM-II
- Recent A1C was 6.6%.
- Follow labs for any significant hyperglycemia.
- Continue healthy diet / lifestyle modifications.
Bladder Cancer
- A new lesion appreciated on imaging / during recent surgery.
- Planned for BCG instillation treatment today - but missed appointment due to his pain.
- Follow-up with Urology as an outpatient.
- ? inpatient evaluation here if abdominal pain persists without identifiable surgical / GI cause.
- Urinalysis is bland.
Paroxysmal Atrial Fibrillation
- In A-Fib at present.
- Continue metoprolol / rate control strategy.
- Hold Eliquis acutely in the event that any intervention is needed.
- Monitor on telemetry overnight.
Peripheral Neuropathy
- Stable. Continue gabapentin.
DVT Prophylaxis: SCDs
Code Status: Full
[2024-09-12] MEDS: MIRAPEX 0.125 MG PO ×2 (00:58→18:32)
--- NOTE | 2024-09-12 06:28 | EDRN ---
Updated patient on bed status and plan for this am, patient is resting comfortably at this time with no pain, informed him to call if he needs anything.
[2024-09-12 06:44] LABS: Hemoglobin 11.5 g/dL (13.0-18.0); Mean Corp Hgb Conc. 34.8 g/dL (33.0-37.0); Mean Corpuscular Hgb 33.2 pg (27.0-31.0); Mean Corpuscular Volume 95.4 fL (80.0-94.0); Mean Platelet Volume 9.4 fL (7.4-10.4); Platelet Count 158 10^3/uL (130-400); Red Blood Cell Count 3.46 10^6/uL (4.70-6.10); Red Cell Dist. Width 12.7 % (11.5-14.5); White Blood Cell Count 5.4 10^3/uL (4.8-10.8)
--- NOTE | 2024-09-12 07:06 | EDRN ---
Report to LAYA Ruff
[2024-09-12 07:10] LABS: Blood Urea Nitrogen 14 mg/dl (9-20); Calcium 9.3 mg/dl (8.4-10.2); Carbon Dioxide 27 mmol/L (22-30); Chloride 100 mmol/L (98-107); Estimated Creatinine Clearance 53 ml/min; Glucose 73 mg/dl (70-99); Potassium 4.1 mmol/L (3.5-5.1); Sodium 140 mmol/L (135-145); eGFR > 60.00
[2024-09-12] MEDS: FLOMAX 0.4 MG PO (08:41)
[2024-09-12] MEDS: TOPROL XL 25 MG PO (08:42)
[2024-09-12] MEDS: NEURONTIN 300 MG PO ×2 (08:42→20:28)
[2024-09-12] MEDS: ZESTRIL 20 MG PO (08:42)
--- NOTE | 2024-09-12 09:13 | W.PN.HOSP.TC ---
Today's Communication/Plan
-
see bold
Assessment / Plan
Assessment / Plan
84y M with PMH significant for bladder cancer, hypertension and recent sigmoidectomy for recurrent diverticulitis who presents to ED complaining of abdominal pain. Patient reports L sided abdominal pain that radiates from the LUQ region to the L
groin. Pain started Wednesday evening after dinner (pot roast and potatoes). Patient had been doing well prior to that on diet of oatmeal, sherbet and other soft / liquid foods. He denies any fevers / chills. No diarrhea, urinary complaints, etc.
No N/V.
Postprandial abdominal Pain
s/p Robotic Sigmoid Resection 08/18/24
- Patient states that pain is identical to his prior episodes - which had been attributed to diverticulitis.
- CT done in ER shows normal post-op changes - including fluid accumulation in the LLQ - most likley representing seroma.
- Appreciate colorectal surgery input, okay for regular diet
- Check CTA of the abdomen and pelvis
Benign Hypertension
- Stable. Continue usual med regimen with holding parameters.
Diet-Controlled DM-II
- Recent A1C was 6.6%.
Bladder Cancer
- A new lesion appreciated on imaging / during recent surgery.
- Planned for BCG instillation treatment 09/11 - but missed appointment due to his pain.
- Follow-up with Urology as an outpatient.
Paroxysmal Atrial Fibrillation
- In A-Fib at present.
- Continue metoprolol / rate control strategy.
- Hold Eliquis acutely in the event that any intervention is needed.
Peripheral Neuropathy
- Stable. Continue gabapentin.
DVT Prophylaxis: Subcu Lovenox while holding Eliquis
Code Status: Full
Physical Exam
General: No acute distress
HEENT: Normocephalic, Atraumatic, EOMI, MMM
Respiratory: Clear to Auscultation bilaterally
Cardiac: Normal S1/S2, Regular Rate and Rhythm
GI: Soft, mild diffuse tenderness, incisions clean/dry/intact
Extremities: No Clubbing, Cyanosis, or Edema
Neuro: Nonfocal/Grossly Intact
Psych: Calm, Cooperative
Derm: No Visible lesions
Anticipated Discharge: 24 - 48 hours
Subjective/Interval History
-
Date of Service: September 12, 2024
Patient reports his abdominal pain is improved. No nausea, no vomiting.
Objective Data
-
Labs:
Laboratory Results
09/12/24
06:24
WBC 5.4
Hgb 11.5 L
Hct 33.0 L
Plt Count 158
Sodium 140
Potassium 4.1
Chloride 100
Carbon Dioxide 27
BUN 14
Creatinine 0.8
Glucose 73
Calcium 9.3
Vital Signs:
Vital Signs
Temp Pulse Resp BP Pulse Ox
97.5 F 76 12 128/70 97
09/12/24 06:26 09/12/24 08:42 09/12/24 07:39 09/12/24 08:42 09/12/24 06:26
--- NOTE | 2024-09-12 13:53 | CON.CRS ---
Consultation
-
Date/Time Consultation Requested: 09/12/2024, 1: 53
Date/Time Consultation Performed: 09/12/2024, 12:30
Requesting Provider: Ricardo Hickman DO
Performing Provider: Rajan Alexander MD
Reason for Consultation: Abdominal pain
Medical History
-
Chief Complaint: Abdominal pain
History of Present Illness:
84-year-old male presents to [place] ER for continued abdominal pain after eating. He recently underwent a robotic sigmoidectomy by Dr. Alves due to recurrent sigmoid diverticulitis on 08/18/2024. The patient states that even prior to his
surgery, he had severe abdominal pain after eating any meal. When he does not eat, he has no pain. He states he feels a 'band' in his abdomen that oftentimes feels better when he leans forward. He is experiencing bloating and pressure and lots of
flatus at night. He also has complained of intermittent nausea when he has the abdominal pain. He had called our office yesterday with the same symptoms and it was recommended he undergo a CTA abdomen and pelvis and general surgery consult as an
outpatient. However due to extreme abdominal pain yesterday afternoon, he came to the ER. CT of the abdomen and pelvis shows a 2.8 x 0.8 cm likely developing fluid collection in the superficial left lower quadrant soft tissues possible
postoperative seroma. There is a large posterior urinary bladder diverticulum with a 1.1 x 0.9 x 1.2 cm hyperdense lesion along the anterior and superior aspect of diverticulum suspicious for neoplasm. There is also a fat-containing left inguinal
hernia. The patient is currently under the care for urology due to the bladder diverticulum and is receiving mitomycin treatments. He was in so much pain yesterday he could not attend his appointment. In the ER his WBC is 5.4. He has remained
afebrile. His labs are stable. We have been consulted for further surgical opinion.
Past Medical History
Past Medical History: Other (Hypertension, Paroxysmal Atrial Fibrillation, DM-II, Bladder Cancer, Diverticular Disease)
Past Surgical History: Other (T&A, TURBT, Robotic Sigmoidectomy (9/27/24))
Social History
Tobacco: Former Smoker
Alcohol: Former
Drug: None
Family History
Family History: Reviewed & Not Pertinent
Allergies / Home Medications
Allergy/AdvReac Type Severity Reaction Status Date / Time
No Known Allergies Allergy Verified 09/11/24 16:32
�Medication �Instructions �Recorded �Confirmed �Type
multivitamin 1 tab PO QPM Supplement 01/04/23 09/12/24 History
omeprazole 20 mg capsule,delayed 20 mg PO QPM Gastrointestinal Issue 01/04/23 09/12/24 History
release
pramipexole 0.125 mg tablet 0.125 mg PO QPM Neurological 01/04/23 09/12/24 History
Condition
pravastatin 40 mg tablet 40 mg PO Q48H@1800 High Cholesterol 01/04/23 09/12/24 History
ascorbic acid (vitamin C) 1,000 mg 1 g PO QPM Supplement 04/30/23 09/12/24 History
tablet
lisinopril 20 mg tablet 20 mg PO DAILY #30 tabs 05/04/23 09/12/24 Rx
tamsulosin 0.4 mg capsule 0.4 mg PO DAILY #30 caps 05/04/23 09/12/24 Rx
apixaban 2.5 mg tablet (Eliquis) 2.5 mg PO BID AFib/prevent blood 10/15/23 09/12/24 History
clot
gabapentin 300 mg capsule 300 mg PO TID neuropathy 10/15/23 09/12/24 History
metoprolol succinate 25 mg 25 mg PO DAILY Blood Pressure 10/15/23 09/12/24 History
tablet,extended release 24 hr
acetaminophen 650 mg 650 mg PO TID pain ##0 02/24/24 09/12/24 History
tablet,extended release
gabapentin 300 mg capsule 600 mg PO HS neuropathy 09/12/24 09/12/24 History
Review of Systems
-
History Source: Patient
Abdomen/GI: Abdominal Pain and Nausea
A 10 point review of systems was completed, and was negative except as per HPI.
Physical Exam
Vital Signs
Temp 97.5 F 09/12/24 06:26
Pulse 76 09/12/24 08:42
Resp Rate 12 09/12/24 07:39
Blood pressure 128/70 09/12/24 08:42
SaO2 97 09/12/24 06:26
09/11/24 09/12/24 09/13/24
06:59 06:59 06:59
Actual Weight 53 kg
Body Mass Index (BMI) 22.1
Lab Results / Allergies
09/12/24 06:24
09/12/24 06:24
WBC 5.4 10^3/uL (4.8-10.8) 09/12/24 06:24
Hgb 11.5 g/dL (13.0-18.0) L 09/12/24 06:24
Hct 33.0 % (39.0-52.0) L 09/12/24 06:24
Plt Count 158 10^3/uL (130-400) 09/12/24 06:24
Abs Immat Gran (auto) 0.0 10^3/uL (0-0.05) 09/11/24 16:35
Neutrophils % 56.2 % (42.2-75.2) 09/11/24 16:35
Allergy/AdvReac Type Severity Reaction Status Date / Time
No Known Allergies Allergy Verified 09/11/24 16:32
Physical Exam
General: Well Developed, Well Nourished and No Apparent Distress
GI: Soft, Non Tender, Tender (mild LLQ) and Incisions (Clean dry and intact)
Skin: Warm and Dry
Neuro: AO x 3
Data Reviewed
-
CT Scan: Image Personally Visualized and interpreted, Report Reviewed by me and Discussed with Patient
Labs: Labs Reviewed by me, Discussed with Physician and Discussed with Patient
Old Records: Reviewed
Assessment / Plan
-
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
Plan:
-No plans for urgent surgery at this time
-Okay to start on a regular diet
-Will obtain CTA of abdomen and pelvis given cramping after eating
-Recommend General Surgery consult for left inguinal hernia
[2024-09-12] MEDS: NEURONTIN PO (18:22)
[2024-09-12] MEDS: LOVENOX 40 MG SC (18:32)
[2024-09-12] MEDS: PRAVACHOL 40 MG PO (18:32)
[2024-09-12] MEDS: PROTONIX 40 MG PO (18:32)
--- NOTE | 2024-09-12 21:27 | PTCARENOTE ---
Patient admitted to the unit around 19:45 via stretcher. AAOx3. Pleasant and cooperative with care. No c/o pain or discomfort at current time. Call [facility] with in reach. Patient educated on using call [facility] at all times before getting out of bed.
Patient verbally agreed to use call [facility] before getting up. Oriented to unit.
[2024-09-13 03:22] VITALS: BP 111/63
--- NOTE | 2024-09-13 07:00 | CON.GS ---
Medical History
-
Chief Complaint: LLQ abdominal discomfort
History of Present Illness:
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 Mr. Blake
reports with persistent lower abdominal and primarily LLQ discomfort after eating. He describes this as a sharp pressure-like sensation that is clearly worsened with eating and mildly improved with leaning forward. He also describes this as a
severe constipation type pain. Associated bloating and intermittent nausea. Reports continuing to pass stools and noted increase in flatus. Denies any burning, numbness, or tingling. He does have a noticeable bulge in his LEFT groin. Some of
his discomfort is within this region. Some of his discomfort is more noticeable with activities such as walking. He denies any signs or symptoms concerning for strangulation or obstruction. He does not use a hernia belt. Of note, above-noted
symptoms were present both preoperatively and postoperatively following his recent sigmoidectomy.
Past Medical History
Past Medical History: Arrhythmias (Afib), Cancer (Bladder), GERD, HTN, Hypercholesterolemia and Other (BPH)
Past Surgical History: Bowel Resection (RAL sigmoidectomy on 08/[address] Alves) and Urological (BPH and large bladder diverticulum)
Social History
Tobacco: Former Smoker
Alcohol: Former
Drug: None
Family History
Family History: Reviewed & Not Pertinent
Allergies / Home Medications
Allergy/AdvReac Type Severity Reaction Status Date / Time
No Known Allergies Allergy Verified 09/11/24 16:32
�Medication �Instructions �Recorded �Confirmed �Type
multivitamin 1 tab PO QPM Supplement 01/04/23 09/12/24 History
omeprazole 20 mg capsule,delayed 20 mg PO QPM Gastrointestinal Issue 01/04/23 09/12/24 History
release
pramipexole 0.125 mg tablet 0.125 mg PO QPM Neurological 01/04/23 09/12/24 History
Condition
pravastatin 40 mg tablet 40 mg PO Q48H@1800 High Cholesterol 01/04/23 09/12/24 History
ascorbic acid (vitamin C) 1,000 mg 1 g PO QPM Supplement 04/30/23 09/12/24 History
tablet
lisinopril 20 mg tablet 20 mg PO DAILY #30 tabs 05/04/23 09/12/24 Rx
tamsulosin 0.4 mg capsule 0.4 mg PO DAILY #30 caps 05/04/23 09/12/24 Rx
apixaban 2.5 mg tablet (Eliquis) 2.5 mg PO BID AFib/prevent blood 10/15/23 09/12/24 History
clot
gabapentin 300 mg capsule 300 mg PO TID neuropathy 10/15/23 09/12/24 History
metoprolol succinate 25 mg 25 mg PO DAILY Blood Pressure 10/15/23 09/12/24 History
tablet,extended release 24 hr
acetaminophen 650 mg 650 mg PO TID pain ##0 02/24/24 09/12/24 History
tablet,extended release
gabapentin 300 mg capsule 600 mg PO HS neuropathy 09/12/24 09/12/24 History
Review of Systems
-
A 10 point review of systems was completed, and was negative except as per HPI.
Physical Exam
Vital Signs
Temp Pulse Resp BP Pulse Ox
97.9 F 72 18 111/63 97
09/13/24 03:22 09/13/24 03:22 09/13/24 03:22 09/13/24 03:22 09/13/24 03:22
09/12/24 09/13/24 09/14/24
06:59 06:59 06:59
Actual Weight 53 kg 50.831 kg
Body Mass Index (BMI) 21.2
Lab Results
09/12/24 06:24
09/12/24 06:24
WBC 5.4 10^3/uL (4.8-10.8) 09/12/24 06:24
Hgb 11.5 g/dL (13.0-18.0) L 09/12/24 06:24
Hct 33.0 % (39.0-52.0) L 09/12/24 06:24
Plt Count 158 10^3/uL (130-400) 09/12/24 06:24
Abs Immat Gran (auto) 0.0 10^3/uL (0-0.05) 09/11/24 16:35
Neutrophils % 56.2 % (42.2-75.2) 09/11/24 16:35
Physical Exam
General: Well Developed, Well Nourished and No Apparent Distress
HEENT: Normocephalic and Anicteric
Respiratory: Non Labored Respirations
Cardiac: Regular Rhythm
GI: Soft, Non Tender, Non Distended, Incisions (Well healed) and Other (Non-peritoneal)
Genito-urinary: Inguinal Hernia (LEFT small direct, reduces with laying flat, soft, non-tender on exam, no palpable RIGHT inguinal hernia)
Musculoskeletal: No Edema
Skin: Warm and Dry
Neuro: Nonfocal/Grossly Intact
Data Reviewed
-
CT Scan: Image Personally Visualized and interpreted and Report Reviewed by me
Labs: Labs Reviewed by me
Old Records: Reviewed
Assessment / Plan
-
Patient is an 84 yo M p/w LLQ and lower abdominal pain and discomfort
Difficult to tell the exact cause for his symptoms, though suspect that they are in someway related to his large bladder diverticulum. He does appear to have a mildly symptomatic LEFT inguinal hernia, however, do not suspect that this is causing
all of his symptoms as the direct correlation with eating and poor nutrition dating back several months to almost a year does not clearly fit with his inguinal hernia given the small size, fat-containing, and reducible nature. Certainly possible
and it appears on his CT scan that his large bladder diverticulum is providing increased intra-abdominal pressure which may be exacerbating his hernia related symptoms.
The natural history and pathophysiology of inguinal hernias was discussed. Anatomy was reviewed. CT scan imaging as a relates to his hernia was reviewed. Options for management including watchful waiting and use of supportive devices such as a
hernia belt versus surgical repair were considered and discussed. He does meet indications for surgical repair, as noted above, he does have asymptomatic component of his hernia. We discussed that at this point in time it is best to be thoughtful
about proceeding with this inguinal hernia repair and coordinate this as a relates to care with his Urologist (Dr. Richardson). We also discussed the use of a hernia belt may provide both symptomatic relief as well as better determine if his symptoms
(as they relate to eating) are truly related to his inguinal hernia. Either way, no plans or indication for more urgent inguinal hernia repair and this can be managed as an outpatient.
We discussed options of surgical repair for his inguinal hernia including both open and MIS. The pros and cons of both approaches was discussed. Specifically, we discussed postoperative pain/discomfort, risk of nerve injury, and general outcomes.
At this time robotic/MIS repairs more complicated given his recent Pfannenstiel incision as well as large distended bladder diverticulum. Concern for performing an open repair given the direct nature of his hernia as well as again above noted large
bladder diverticulum providing increased intra-abdominal pressure which will likely increase his risks for recurrence with this approach. Would have a tentative plan for a robotic LEFT inguinal hernia repair with mesh following an initial watchful
waiting approach with a hernia belt to better determine the exact nature and cause of his symptoms as well as coordinate management with his bladder diverticulum. All questions answered.
-- No plans or indication for urgent inguinal hernia during this admission
-- Hernia belt
-- Outpatient follow-up in 1-2 weeks to coordinate and further discuss RAL LIH repair with mesh
-- Will discuss case with both CRS and Urology
[2024-09-13 07:53] VITALS: BP 132/66
[2024-09-13] MEDS: TOPROL XL 25 MG PO (08:10)
[2024-09-13] MEDS: NEURONTIN 300 MG PO ×3 (08:10→21:44)
[2024-09-13] MEDS: FLOMAX 0.4 MG PO (08:10)
[2024-09-13] MEDS: ZESTRIL 20 MG PO (08:11)
--- NOTE | 2024-09-13 08:37 | W.PN.HOSP.TC ---
Today's Communication/Plan
-
Discharge if tolerating lunch
Assessment / Plan
Assessment / Plan
84y M with PMH significant for bladder cancer, hypertension and recent sigmoidectomy for recurrent diverticulitis who presents to ED complaining of abdominal pain. Patient reports L sided abdominal pain that radiates from the LUQ region to the L
groin. Pain started Wednesday evening after dinner (pot roast and potatoes). Patient had been doing well prior to that on diet of oatmeal, sherbet and other soft / liquid foods. He denies any fevers / chills. No diarrhea, urinary complaints, etc.
No N/V.
Postprandial abdominal Pain
s/p Robotic Sigmoid Resection 08/18/24
- Patient states that pain is identical to his prior episodes - which had been attributed to diverticulitis.
- CT done in ER shows normal post-op changes - including fluid accumulation in the LLQ - most likely representing seroma.
- Appreciate colorectal surgery input, tolerating a regular diet, cleared by colorectal surgery for discharge
- CTA of the abdomen and pelvis neg
- Patient with very poor eating, 15% for breakfast, 10% for lunch
- Start protein supplement
Left lower inguinal hernia
-Appreciate surgery input, obtain a hernia belt, recommend follow-up in the office in 1-2 weeks to coordinate RAL LIH repair with mesh
Constipation
- Last bowel movement 4 days ago on Wednesday, 09/09
- Start aggressive bowel regimen
Bladder Cancer
- A new lesion appreciated on imaging / during recent surgery.
- Planned for BCG instillation treatment 09/11 - but missed appointment due to his pain.
- Follow-up with Urology/Dr. Richardson as an outpatient.
Benign Hypertension
- Stable. Continue usual med regimen with holding parameters.
Diet-Controlled DM-II
- Recent A1C was 6.6%.
Paroxysmal Atrial Fibrillation
- In A-Fib at present.
- Continue metoprolol / rate control strategy.
- Resume Eliquis acutely in the event that any intervention is needed.
Peripheral Neuropathy
- Stable. Continue gabapentin.
DVT Prophylaxis: Eliquis
Code Status: Full
Total time spent to see the patient on the floor, examine the patient, review data and lab results, discuss treatment plan with patient, nursing staff around 50 minutes.
Physical Exam
General: No acute distress
HEENT: Normocephalic, Atraumatic, EOMI, MMM
Respiratory: Clear to Auscultation bilaterally
Cardiac: Normal S1/S2, Regular Rate and Rhythm
GI: Soft, mild diffuse tenderness, incisions clean/dry/intact
Extremities: No Clubbing, Cyanosis, or Edema
Neuro: Nonfocal/Grossly Intact
Anticipated Discharge: Within 24 hours
Subjective/Interval History
-
Date of Service: September 13, 2024
Patient states that he did not have any postprandial abdominal pain after eating dinner last night or breakfast this morning. No nausea, no vomiting. He reports constipation, last bowel movement was Wednesday.
Objective Data
-
Vital Signs:
Vital Signs
Temp Pulse Resp BP Pulse Ox
97.5 F 81 18 132/66 95
09/13/24 07:53 09/13/24 08:11 09/13/24 07:53 09/13/24 08:11 09/13/24 07:53
--- NOTE | 2024-09-13 09:44 | W.PN.CRS1 ---
Addendum entered and electronically signed by Ronaldo Spencer MD 09/14/24 07:13:
OK for discharge from colorectal standpoint. Please call for questions or concerns.
Original Note:
Today's Communication / Plan
-
Continue diet
Okay for discharge from our standpoint.
Assessment/Plan
-
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
Plan:
-No plans for urgent surgery at this time
-Continue regular diet
-CTA of the abdomen pelvis showed no acute findings yesterday.
-Appreciate general surgery's recommendation for his left lower inguinal hernia. Patient will obtain a hernia belt. Dr. Hinson to discuss with Dr. Richardson surgical plans for hernia and/or bladder diverticulum.
-Okay for discharge from our standpoint. He will follow-up with Dr. Alves in the office as an outpatient.
Subjective Data
Subjective Data
Date of Service: September 13, 2024
Patient is doing well. He has been tolerating diet. He is also cramping which is normal for him. He feels like he could go home.
Objective Data
-
Vital Signs
Temp Pulse Resp BP Pulse Ox
97.5 F 81 18 132/66 95
09/13/24 07:53 09/13/24 08:11 09/13/24 07:53 09/13/24 08:11 09/13/24 07:53
Intake & Output
09/12/24 09/13/24 09/14/24
06:59 06:59 06:59
Other:
Number of approximated MODERATE 2
amounts of urine
Lab Results
09/12/24 06:24
09/12/24 06:24
Physical Exam
-
General: No Acute Distress and AOx3
Abdomen: Soft, Non Distended and Tender (Left lower quadrant)
Skin: Warm and Dry
[2024-09-13] MEDS: MIRALAX 17 GRAMS PO (11:27)
[2024-09-13] MEDS: SENNA SYRUP 17.6 MG PO (11:28)
[2024-09-13 11:30] VITALS: BP 121/71
[2024-09-13 15:30] VITALS: BP 115/65
--- NOTE | 2024-09-13 16:56 | CM ---
manager of environmental services reviewed patient's chart and met with patient and patient reports that he lives with his spouse in his home that has been converted into a home for his son and family and in law suite for patient and his spouse. Patient reports he has a
ramp into home, is independent with adl's and uses a walker, or w/c with ambulation. Patient has a hospital bed, and shower chair, along with rollator, patient's son is an EMT and daughter is a nurse.
PCP: Dr Jhaveri
Pharmacy: [facility] in [place].
Plan; Home with family when stable.
[2024-09-13] MEDS: PROTONIX 40 MG PO (17:26)
[2024-09-13] MEDS: MIRAPEX 0.125 MG PO (17:27)
[2024-09-13] MEDS: LOVENOX 40 MG SC (17:27)
[2024-09-13 19:32] VITALS: BP 121/64
[2024-09-13] MEDS: MIRALAX PO (20:06)
[2024-09-13] MEDS: SENOKOT-S PO (20:06)
[2024-09-13] MEDS: NEURONTIN 600 MG PO (21:44)
[2024-09-13 22:45] VITALS: BP 106/55
[2024-09-14 02:37] VITALS: BP 117/61
[2024-09-14 07:30] VITALS: BP 125/63
[2024-09-14] MEDS: FLOMAX 0.4 MG PO (08:09)
[2024-09-14] MEDS: MIRALAX 17 GRAMS PO (08:09)
[2024-09-14] MEDS: TOPROL XL 25 MG PO (08:10)
[2024-09-14] MEDS: NEURONTIN 300 MG PO (08:10)
[2024-09-14] MEDS: ZESTRIL 20 MG PO (08:10)
[2024-09-14] MEDS: SENOKOT-S 2 TABLET PO (08:12)
--- NOTE | 2024-09-14 08:12 | W.PN.HOSP.TC ---
Today's Communication/Plan
-
Discharge today
Assessment / Plan
Assessment / Plan
84y M with PMH significant for bladder cancer, hypertension and recent sigmoidectomy for recurrent diverticulitis who presents to ED complaining of abdominal pain. Patient reports L sided abdominal pain that radiates from the LUQ region to the L
groin. Pain started Wednesday evening after dinner (pot roast and potatoes). Patient had been doing well prior to that on diet of oatmeal, sherbet and other soft / liquid foods. He denies any fevers / chills. No diarrhea, urinary complaints, etc.
No N/V.
Postprandial abdominal Pain
s/p Robotic Sigmoid Resection 08/18/24
- Patient states that pain is identical to his prior episodes - which had been attributed to diverticulitis.
- CT done in ER shows normal post-op changes - including fluid accumulation in the LLQ - most likely representing seroma.
- Appreciate colorectal surgery input, tolerating a regular diet, cleared by colorectal surgery for discharge
- CTA of the abdomen and pelvis neg
- Patient ate 100% of breakfast on the day of discharge
- Started protein supplement -recommend continuing upon discharge
Left lower inguinal hernia
-Appreciate surgery input, obtain a hernia belt, recommend follow-up in the office in 1-2 weeks to coordinate RAL LIH repair with mesh
Constipation
- Last bowel movement 4 days ago on Wednesday, 09/09
- Resolved on aggressive bowel regimen, continue MiraLAX upon discharge
Bladder Cancer
- A new lesion appreciated on imaging / during recent surgery.
- Planned for BCG instillation treatment 09/11 - but missed appointment due to his pain.
- Follow-up with Urology/Dr. Richardson as an outpatient.
Benign Hypertension
- Stable. Continue usual med regimen with holding parameters.
Diet-Controlled DM-II
- Recent A1C was 6.6%.
Paroxysmal Atrial Fibrillation
- In A-Fib at present.
- Continue metoprolol / rate control strategy.
- Resume Eliquis acutely in the event that any intervention is needed.
Peripheral Neuropathy
- Stable. Continue gabapentin.
Updated daughter on phone 09/14
Physical Exam
General: No acute distress
HEENT: Normocephalic, Atraumatic, EOMI, MMM
Respiratory: Clear to Auscultation bilaterally
Cardiac: Normal S1/S2, Regular Rate and Rhythm
GI: Soft, mild diffuse tenderness, incisions clean/dry/intact
Extremities: No Clubbing, Cyanosis, or Edema
Neuro: Nonfocal/Grossly Intact
Anticipated Discharge: Today
Subjective/Interval History
-
Date of Service: September 14, 2024
Patient feels better after having several bowel movements. He was able to eat 100% of his breakfast today without abdominal pain. No fever, no vomiting.
Objective Data
-
Vital Signs:
Vital Signs
Temp Pulse Resp BP Pulse Ox
98.0 F 78 16 117/61 94
09/14/24 02:37 09/14/24 02:37 09/14/24 02:37 09/14/24 02:37 09/14/24 02:37
I&O
09/13/24 09/14/24 09/15/24
06:59 06:59 06:59
Intake Total 1200 / 1200
Balance 1200 / 1200
[2024-09-14 09:53] LABS: Hematocrit 35.5 % (39.0-52.0); Hemoglobin 12.4 g/dL (13.0-18.0); Mean Corp Hgb Conc. 34.9 g/dL (33.0-37.0); Mean Corpuscular Hgb 34.9 pg (27.0-31.0); Mean Platelet Volume 9.9 fL (7.4-10.4); Platelet Count 169 10^3/uL (130-400); Red Blood Cell Count 3.55 10^6/uL (4.70-6.10); Red Cell Dist. Width 12.8 % (11.5-14.5); White Blood Cell Count 5.9 10^3/uL (4.8-10.8)
--- NOTE | 2024-09-14 11:19 | W.DCSUMMARY ---
Discharge Summary
Discharge Data
Date of Admission: 09/12/24
Date of Discharge: 09/14/24
-
Pending Results: No
Hospital Course
Discharge diagnosis:
Postprandial abdominal pain
Status post robotic sigmoid resection 08/18/2024
Constipation
Left inguinal hernia
Bladder cancer
Benign hypertension
Diet-controlled type 2 diabetes
Paroxysmal atrial fibrillation on Eliquis
Consults: Colorectal surgery, general surgery
CTA Abd/pelvis:
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
arteries. No evidence of abdominal aortic aneurysm or dissection.
Mild diffuse gastric wall thickening which may be secondary to underdistention however can be seen with gastritis.
Unchanged small fluid collection within the superficial soft tissues of the left lower quadrant/pelvis.
Persistent 1.2 cm lesion along the anterior/superior aspect of the prominent posterior urinary bladder diverticulum likely a neoplasm and suspicious for malignancy.
Hospital course:
84-year-old male with a past medical history of paroxysmal atrial fibrillation on Eliquis, bladder cancer, hypertension and recent sigmoidectomy for recurrent diverticulitis who was placed in observation for postprandial abdominal pain. Patient had
a CT of the abdomen and pelvis as well as CTA of the abdomen and pelvis, which were negative for acute findings. Patient was seen in conjunction with colorectal surgery, who cleared the patient for discharge.
He continued to complain of left lower abdominal tenderness/hypersensitivity. He has a left inguinal hernia. Patient was seen in conjunction with general surgery. General surgery recommends a hernia belt, and follow-up outpatient in 2 weeks for
surgical intervention.
Patient reports not having a bowel movement for 4 days. Suspect his postprandial pain is likely secondary to constipation. He received an aggressive bowel regimen, and had multiple bowel movements. His oral intake improved dramatically, and he
ate 100% of his breakfast on the day of discharge. He did not have any postprandial pain after eating 100% of his breakfast.
Patient is medically stable for discharge. He needs to follow-up with his primary care doctor in 1 week, and urology/general surgery/colorectal surgery in 2 weeks.
Disposition: Home self-care
Discharge planning: Required 41-minutes
Discharge Plan
-
Patient Disposition: Home (Routine Discharge)
Discharge Diagnosis/Procedures: Postprandial abdominal pain, recent robotic sigmoid resection 08/18/2024, left lower inguinal hernia, constipation, bladder cancer
Condition: Fair
Diet: Regular
Activity: As tolerated
Driving Restrictions: As prior to admission
Activity Restrictions/Additional Instructions:
Please follow-up with your primary care doctor in 1 week, and general surgery/urology/colorectal surgery in 2 weeks.
Referrals:
Rajan Jhaveri MD [Family Provider] - in one week
Prescriptions:
New
oxycodone 5 mg tablet
5 mg PO BID PRN (Reason: Pain) Qty: 20 0RF
polyethylene glycol 3350 17 gram/dose powder
17 g PO DAILY Qty: 510 0RF
Continued
multivitamin Tablet
1 tab PO QPM
pravastatin 40 mg Tablet
40 mg PO Q48H@1800
pramipexole 0.125 mg Tablet
0.125 mg PO QPM
omeprazole 20 mg Capsule,Delayed Release(Dr/Ec)
20 mg PO QPM
ascorbic acid (vitamin C) 1,000 mg Tablet
1 g PO QPM
tamsulosin 0.4 mg Capsule
0.4 mg PO DAILY Qty: 30 0RF
lisinopril 20 mg tablet
20 mg PO DAILY Qty: 30 0RF
metoprolol succinate 25 mg Tablet Extended Release 24 Hr
25 mg PO DAILY
Eliquis 2.5 mg Tablet
2.5 mg PO BID
gabapentin 300 mg capsule
300 mg PO TID
acetaminophen 650 mg Tablet Extended Release
650 mg PO TID Qty: 0
gabapentin 300 mg Capsule
600 mg PO HS
Discharge Orders:
Discharge Patient (As Directed); Ordered 09/14/24
Ordered By: Sukhdeep Carnes
Discharge Date and Time
Discharge Date/Time: 09/14/24 13:34
Print Language: MALTESE
[2024-09-14 11:29] LABS: Blood Urea Nitrogen 36 mg/dl (9-20); Carbon Dioxide 32 mmol/L (22-30); Chloride 100 mmol/L (98-107); Estimated Creatinine Clearance 41 ml/min; Glucose 98 mg/dl (70-99); Magnesium 1.9 mg/dl (1.6-2.3); Phosphorus 3.7 mg/dl (2.5-4.5); Potassium 4.6 mmol/L (3.5-5.1); Sodium 142 mmol/L (135-145); eGFR > 60.00
--- NOTE | 2024-09-14 11:44 | CM ---
Home no needs, patient declines visiting nursing at discharge.
Plan; Home no needs.
[2024-09-14 11:46] VITALS: BP 112/68
== END 2024-09-14 13:34 | disposition home or self-care (01) ==
LOC: 4 WEST ACU 00:43
PROVIDERS: Registered Nurse; ADMITTING PHYSICIAN Hospitalist; ATTENDING PHYSICIAN Family Medicine; CONSULT PHYSICIAN Surgery; EMERGENCY PHYSICIAN Emergency Medicine; FAMILY PHYSICIAN Internal Medicine
DX: R10.9 Unspecified abdominal pain (principal); I48.0 Paroxysmal atrial fibrillation; R11.0 Nausea; I10 Essential (primary) hypertension; E78.00 Pure hypercholesterolemia, unspecified; K21.9 Gastro-esophageal reflux disease without esophagitis; R18.8 Other ascites; K40.90 Unilateral inguinal hernia, without obstruction or gangrene, not specified as recurrent; R10.32 Left lower quadrant pain; J43.9 Emphysema, unspecified; E11.42 Type 2 diabetes mellitus with diabetic polyneuropathy; N32.3 Diverticulum of bladder; N40.0 Benign prostatic hyperplasia without lower urinary tract symptoms; C67.9 Malignant neoplasm of bladder, unspecified; K59.00 Constipation, unspecified; R14.0 Abdominal distension (gaseous); E11.65 Type 2 diabetes mellitus with hyperglycemia; I70.0 Atherosclerosis of aorta; E27.9 Disorder of adrenal gland, unspecified; K55.1 Chronic vascular disorders of intestine; E78.5 Hyperlipidemia, unspecified; F17.290 Nicotine dependence, other tobacco product, uncomplicated; Z90.79 Acquired absence of other genital organ(s); Z87.440 Personal history of urinary (tract) infections; Z87.19 Personal history of other diseases of the digestive system; Z90.49 Acquired absence of other specified parts of digestive tract; Z79.01 Long term (current) use of anticoagulants; Z83.3 Family history of diabetes mellitus; Z82.49 Family history of ischemic heart disease and other diseases of the circulatory system
CPT/HCPCS: 74174; 74177; 80048; 80053; 81003; 83690; 83735; 84100; 85025; 85027; 99285; Q9967

== ENCOUNTER 2025-01-02 06:28 | Day surgery (SDC) | payer OTHER, SELFPAY ==
[2024-12-27 13:47] LABS: Hematocrit 37.2 % (39.0-52.0); Hemoglobin 12.7 g/dL (13.0-18.0); Mean Corp Hgb Conc. 34.1 g/dL (33.0-37.0); Mean Corpuscular Hgb 34.1 pg (27.0-31.0); Mean Platelet Volume 9.1 fL (7.4-10.4); Platelet Count 172 10^3/uL (130-400); Red Blood Cell Count 3.72 10^6/uL (4.70-6.10); Red Cell Dist. Width 12.6 % (11.5-14.5); White Blood Cell Count 7.7 10^3/uL (4.8-10.8)
[2024-12-27 13:52] VITALS: BMI 22.9
[2024-12-27 14:54] LABS: Blood Urea Nitrogen 20 mg/dl (9-20); Calcium 9.3 mg/dl (8.4-10.2); Carbon Dioxide 28 mmol/L (22-30); Chloride 99 mmol/L (98-107); Estimated Creatinine Clearance 44 ml/min; Glucose 115 mg/dl (70-99); Potassium 4.6 mmol/L (3.5-5.1); Sodium 135 mmol/L (135-145); eGFR > 60.00
[2025-01-02] VITALS (9 sets, daily range): BP systolic 114–177; BP diastolic 67–85; BMI 22.9
[2025-01-02] MEDS: CYSVIEW KIT 100 MG INTRAVES (08:18)
[2025-01-02] MEDS: NORMOSOL-R/PLASMALYTE-A 1000 IV (08:38)
[2025-01-02] MEDS: MORPHINE SULFATE 1 MG IV (11:25)
--- NOTE | 2025-01-02 11:40 | SUR.PHASEI ---
Dr. Richardson updated that pt is refusing conrad and wants it out. Re-educated the pt and meds given but still wants conrad out. Dr. Richardson at bedside and will remove conrad but will backfill with 250cc NS. Pt updated.
[2025-01-02] MEDS: Pyridium 200 MG PO (11:53)
== END 2025-01-02 13:20 | disposition home or self-care (01) ==
LOC: SDS 06:28
PROVIDERS: ATTENDING PHYSICIAN Specialist; FAMILY PHYSICIAN Internal Medicine
DX: C67.9 Malignant neoplasm of bladder, unspecified (principal)
CPT/HCPCS: 52235; 88307; 36415; 80048; 85027; A9589